=== PATIENT | female | born 1960 | race Caucasian/White ===

== ENCOUNTER 2021-08-01 23:02 | Observation (INO) ==
[2021-08-01 05:45] LABS: Basophils # 0.1 K/mcL (0.0-0.2); Basophils % 1.4 %; Eosinophils # 0.5 K/mcL (0.0-0.6); Eosinophils % 6.1 %; Hematocrit 33.3 % (35.3-44.9); Immature Granulocytes % 0.6 % (0-4); Lymphocytes % 25.7 %; Mean Corpuscular Hemoglobin 28.9 pg (28.0-33.3); Mean Corpuscular Volume 96.2 fL (83.0-100.0); Mean Platelet Volume 8.6 fL (9.4-12.4); Monocytes # 0.9 K/mcL (0.0-1.3); Monocytes % 11.8 %; Neutrophils # 4.3 K/mcL (1.6-8.9); Platelet Count 476 K/mcL (140-400); Red Blood Count 3.46 M/mcL (3.82-4.97); Red Cell Distribution Width 15.2 % (11.5-14.5); Segmented Neutrophils % 54.4 %; White Blood Count 7.9 K/mcL (4.3-11.1)
[2021-08-01 06:12] LABS: INR 1.5; Prothrombin Time 17.1 Seconds (9.4-12.1)
[2021-08-01 08:24] LABS: BUN/Creatinine Ratio 11 (6-26); Blood Urea Nitrogen 7 mg/dL (6-20); Carbon Dioxide 24 mEq/L (23-29); Chloride 104 mEq/L (98-107); Glucose 99 mg/dL (70-105); Osmolality,Calculated 280 (280-300); Potassium 3.4 mEq/L (3.5-5.1); Sodium 136 mEq/L (136-145); eGFR For African Americans > 60 (> 60); eGFR For Non-African Americans > 60 (> 60)
[2021-08-01] MEDS: Aspirin 81 MG TAB.CHEW PO SCH (08:30)
[2021-08-01] MEDS: *HR* OxyCODONE Immed Rel 5 MG TABLET PO PRN ×2 (17:08→23:38)
[2021-08-01] MEDS: Gabapentin 300 MG CAPSULE PO SCH ×2 (17:08→20:39)
[2021-08-01] MEDS: Apixaban 5 MG TABLET PO SCH (20:38)
[2021-08-01] MEDS: ALPRAZolam 0.5 MG TABLET PO PRN (20:39)
[2021-08-01] MEDS: Melatonin 3 MG TABLET PO PRN (20:39)
[~2021-08-01 23:02] MED LIST: Acetaminophen 325 MG TABLET PO PRN; Apixaban 5 MG TABLET PO SCH; Naloxone 0.4 MG/ML INJ IVP PRN; Ondansetron ODT 4 MG TAB.RAPDIS SL PRN
[2021-08-02] MEDS: *HR* OxyCODONE Immed Rel 5 MG TABLET PO PRN ×3 (05:46→19:33)
[2021-08-02 06:18] LABS: Hematocrit 34.1 % (35.3-44.9); Hemoglobin 10.2 g/dL (11.5-15.4); Mean Corpuscular HGB Conc 29.9 g/dL (31.6-35.5); Mean Corpuscular Hemoglobin 29.1 pg (28.0-33.3); Mean Corpuscular Volume 97.2 fL (83.0-100.0); Mean Platelet Volume 8.8 fL (9.4-12.4); Platelet Count 455 K/mcL (140-400); Red Blood Count 3.51 M/mcL (3.82-4.97); Red Cell Distribution Width 15.3 % (11.5-14.5)
[2021-08-02 08:18] LABS: Alanine Aminotransferase 20 Units/L (7-52); Albumin 3.3 g/dL (3.5-5.7); Albumin/Globulin Ratio 1.3 (1.1-2.2); Alkaline Phosphatase 130 Units/L (34-104); Aspartate Amino Transferase 24 Units/L (13-39); BUN/Creatinine Ratio 9 (6-26); Bilirubin,Total 0.4 mg/dL (0.3-1.0); Blood Urea Nitrogen 6 mg/dL (6-20); Calcium 9.1 mg/dL (8.6-10.3); Carbon Dioxide 25 mEq/L (23-29); Chloride 107 mEq/L (98-107); Globulin 2.6 g/dL (2.4-3.5); Glucose 91 mg/dL (70-105); Magnesium 1.9 mg/dL (1.6-2.6); Osmolality,Calculated 285 (280-300); Sodium 139 mEq/L (136-145); Total Protein 5.9 g/dL (6.4-8.9); eGFR For African Americans > 60 (> 60); eGFR For Non-African Americans > 60 (> 60)
[2021-08-02] MEDS ORDERED: NON-FORMULARY MEDICATION 1 EACH EACH (Mirabegron [Myrbetriq] 50 MG Tab.Er.24h) PO SCH (09:00)
[2021-08-02] MEDS: Multivit/Ca/Min/Fe/FA 1 TAB TABLET PO SCH (09:14)
[2021-08-02] MEDS: Gabapentin 300 MG CAPSULE PO SCH ×3 (09:14→19:33)
[2021-08-02] MEDS: Cyanocobalamin (B-12) 1,000 MCG TABLET PO SCH (09:14)
[2021-08-02] MEDS: Aspirin 81 MG TAB.CHEW PO SCH (09:14)
[2021-08-02] MEDS: Apixaban 5 MG TABLET PO SCH ×2 (09:14→19:33)
[2021-08-02] MEDS: BUDESONIDE 3 MG PO SCH (09:15)
[2021-08-02] MEDS: ALPRAZolam 0.5 MG TABLET PO PRN (19:32)
[2021-08-02] MEDS: Melatonin 3 MG TABLET PO PRN (19:33)
[2021-08-03] MEDS: *HR* OxyCODONE Immed Rel 5 MG TABLET PO PRN (08:45)
[2021-08-03] MEDS: Aspirin 81 MG TAB.CHEW PO SCH (08:45)
[2021-08-03] MEDS: Cyanocobalamin (B-12) 1,000 MCG TABLET PO SCH (08:46)
[2021-08-03] MEDS: Gabapentin 300 MG CAPSULE PO SCH (08:46)
[2021-08-03] MEDS: Multivit/Ca/Min/Fe/FA 1 TAB TABLET PO SCH (08:46)
[2021-08-03] MEDS: Apixaban 5 MG TABLET PO SCH (08:46)
[2021-08-03] MEDS: BUDESONIDE 3 MG PO SCH (09:11)
[2021-08-03 11:25] VITALS: BP 115/74; PULSE 92; RESP 16; TEMP 98.2; O2SAT 96
== END 2021-08-03 11:51 | disposition other institution (70) ==
LOC: INPGRE
PROVIDERS: ADMIT Family Medicine; ATTEND Family Medicine

== ENCOUNTER 2021-08-03 09:38 | Inpatient (IN) ==
[2021-08-03] MEDS ORDERED: Acetaminophen 325 MG TABLET PO PRN (11:14)
[2021-08-03] MEDS ORDERED: Naloxone 0.4 MG/ML INJ IVP PRN (11:19)
[2021-08-03] MEDS ORDERED: Ondansetron ODT 4 MG TAB.RAPDIS SL PRN (11:19)
[2021-08-03] MEDS: Gabapentin 300 MG CAPSULE PO SCH ×2 (15:45→21:25)
[2021-08-03] MEDS: *HR* OxyCODONE Immed Rel 5 MG TABLET PO PRN ×2 (15:48→21:23)
[2021-08-03] MEDS: ALPRAZolam 0.5 MG TABLET PO PRN (21:25)
[2021-08-03] MEDS: Apixaban 5 MG TABLET PO SCH (21:25)
[2021-08-04] MEDS: *HR* OxyCODONE Immed Rel 5 MG TABLET PO PRN ×3 (05:37→20:09)
[2021-08-04] MEDS: Aspirin 81 MG TAB.CHEW PO SCH (09:09)
[2021-08-04] MEDS: Cyanocobalamin (B-12) 1,000 MCG TABLET PO SCH (09:09)
[2021-08-04] MEDS: Apixaban 5 MG TABLET PO SCH ×2 (09:09→20:02)
[2021-08-04] MEDS: Gabapentin 300 MG CAPSULE PO SCH ×3 (09:10→20:03)
[2021-08-04] MEDS: Multivit/Ca/Min/Fe/FA 1 TAB TABLET PO SCH (09:10)
[2021-08-04] MEDS: ALPRAZolam 0.5 MG TABLET PO PRN (20:01)
[2021-08-04] MEDS: Melatonin 3 MG TABLET PO PRN (20:02)
[2021-08-05] MEDS: Gabapentin 300 MG CAPSULE PO SCH ×3 (09:08→20:12)
[2021-08-05] MEDS: Apixaban 5 MG TABLET PO SCH ×2 (09:09→20:12)
[2021-08-05] MEDS: Aspirin 81 MG TAB.CHEW PO SCH (09:09)
[2021-08-05] MEDS: Multivit/Ca/Min/Fe/FA 1 TAB TABLET PO SCH (09:09)
[2021-08-05] MEDS: Cyanocobalamin (B-12) 1,000 MCG TABLET PO SCH (09:10)
[2021-08-05] MEDS: *HR* OxyCODONE Immed Rel 5 MG TABLET PO PRN ×3 (09:21→22:46)
[2021-08-05] MEDS: ALPRAZolam 0.5 MG TABLET PO PRN (22:46)
[2021-08-05] MEDS: Melatonin 3 MG TABLET PO PRN (22:46)
[2021-08-06 05:41] LABS: Basophils # 0.1 K/mcL (0.0-0.2); Basophils % 1.3 %; Eosinophils # 0.5 K/mcL (0.0-0.6); Eosinophils % 8.6 %; Hematocrit 35.1 % (35.3-44.9); Hemoglobin 10.3 g/dL (11.5-15.4); Immature Granulocytes % 0.5 % (0-4); Lymphocytes # 2.2 K/mcL (0.6-4.6); Lymphocytes % 35.6 %; Mean Corpuscular HGB Conc 29.3 g/dL (31.6-35.5); Mean Corpuscular Hemoglobin 28.5 pg (28.0-33.3); Mean Corpuscular Volume 97.2 fL (83.0-100.0); Mean Platelet Volume 8.8 fL (9.4-12.4); Monocytes # 0.5 K/mcL (0.0-1.3); Monocytes % 8.8 %; Neutrophils # 2.8 K/mcL (1.6-8.9); Platelet Count 356 K/mcL (140-400); Red Blood Count 3.61 M/mcL (3.82-4.97); Red Cell Distribution Width 14.8 % (11.5-14.5); Segmented Neutrophils % 45.2 %; White Blood Count 6.1 K/mcL (4.3-11.1)
[2021-08-06 05:54] LABS: Reactive Lymphocytes Present (Not Present); Toxic Granulation Present (Not Present)
[2021-08-06 05:55] LABS: Platelet Estimate Normal (Normal)
[2021-08-06 05:56] LABS: BUN/Creatinine Ratio 17 (6-26); Blood Urea Nitrogen 10 mg/dL (6-20); Calcium 8.6 mg/dL (8.6-10.3); Carbon Dioxide 25 mEq/L (23-29); Chloride 107 mEq/L (98-107); Glucose 112 mg/dL (70-105); Large Platelets Present (Not Present); Osmolality,Calculated 288 (280-300); Potassium 3.7 mEq/L (3.5-5.1); Sodium 139 mEq/L (136-145); eGFR For African Americans > 60 (> 60); eGFR For Non-African Americans > 60 (> 60)
[2021-08-06] MEDS: Aspirin 81 MG TAB.CHEW PO SCH (10:05)
[2021-08-06] MEDS: Gabapentin 300 MG CAPSULE PO SCH ×3 (10:05→19:40)
[2021-08-06] MEDS: Apixaban 5 MG TABLET PO SCH ×2 (10:06→19:40)
[2021-08-06] MEDS: Cyanocobalamin (B-12) 1,000 MCG TABLET PO SCH (10:06)
[2021-08-06] MEDS: Multivit/Ca/Min/Fe/FA 1 TAB TABLET PO SCH (10:06)
[2021-08-06] MEDS: *HR* OxyCODONE Immed Rel 5 MG TABLET PO PRN ×2 (10:06→16:51)
[2021-08-06] MEDS: cephALEXin 500 MG CAPSULE PO SCH ×2 (16:52→19:40)
[2021-08-06] MEDS: Melatonin 3 MG TABLET PO PRN (19:39)
[2021-08-06] MEDS: ALPRAZolam 0.5 MG TABLET PO PRN (19:40)
[2021-08-07] MEDS: *HR* OxyCODONE Immed Rel 5 MG TABLET PO PRN ×3 (01:04→17:12)
[2021-08-07] MEDS: cephALEXin 500 MG CAPSULE PO SCH ×3 (09:58→20:17)
[2021-08-07] MEDS: Aspirin 81 MG TAB.CHEW PO SCH (09:58)
[2021-08-07] MEDS: Gabapentin 300 MG CAPSULE PO SCH ×3 (09:58→20:17)
[2021-08-07] MEDS: Apixaban 5 MG TABLET PO SCH ×2 (09:59→20:17)
[2021-08-07] MEDS: Cyanocobalamin (B-12) 1,000 MCG TABLET PO SCH (09:59)
[2021-08-07] MEDS: Multivit/Ca/Min/Fe/FA 1 TAB TABLET PO SCH (09:59)
[2021-08-07] MEDS: ALPRAZolam 0.5 MG TABLET PO PRN (20:17)
[2021-08-07] MEDS: Melatonin 3 MG TABLET PO PRN (20:17)
[2021-08-08] MEDS: *HR* OxyCODONE Immed Rel 5 MG TABLET PO PRN ×3 (05:36→18:15)
[2021-08-08] MEDS: Aspirin 81 MG TAB.CHEW PO SCH (08:59)
[2021-08-08] MEDS: Gabapentin 300 MG CAPSULE PO SCH ×3 (08:59→20:06)
[2021-08-08] MEDS: Multivit/Ca/Min/Fe/FA 1 TAB TABLET PO SCH (09:00)
[2021-08-08] MEDS: cephALEXin 500 MG CAPSULE PO SCH ×3 (09:00→20:06)
[2021-08-08] MEDS: Apixaban 5 MG TABLET PO SCH ×2 (09:00→20:06)
[2021-08-08] MEDS: Cyanocobalamin (B-12) 1,000 MCG TABLET PO SCH (09:00)
[2021-08-08] MEDS: Melatonin 3 MG TABLET PO PRN (20:06)
[2021-08-08] MEDS: ALPRAZolam 0.5 MG TABLET PO PRN (20:06)
[2021-08-09] MEDS: *HR* OxyCODONE Immed Rel 5 MG TABLET PO PRN ×3 (04:39→20:34)
[2021-08-09] MEDS: Gabapentin 300 MG CAPSULE PO SCH ×3 (09:29→20:33)
[2021-08-09] MEDS: Cyanocobalamin (B-12) 1,000 MCG TABLET PO SCH (09:30)
[2021-08-09] MEDS: Aspirin 81 MG TAB.CHEW PO SCH (09:30)
[2021-08-09] MEDS: Apixaban 5 MG TABLET PO SCH ×2 (09:30→20:34)
[2021-08-09] MEDS: Multivit/Ca/Min/Fe/FA 1 TAB TABLET PO SCH (09:30)
[2021-08-09] MEDS: cephALEXin 500 MG CAPSULE PO SCH ×3 (09:30→20:34)
[2021-08-09] MEDS: ALPRAZolam 0.5 MG TABLET PO PRN (20:34)
[2021-08-09] MEDS: Melatonin 3 MG TABLET PO PRN (20:34)
[2021-08-10] MEDS: Apixaban 5 MG TABLET PO SCH ×2 (08:30→20:45)
[2021-08-10] MEDS: Gabapentin 300 MG CAPSULE PO SCH ×3 (08:30→20:43)
[2021-08-10] MEDS: cephALEXin 500 MG CAPSULE PO SCH ×3 (08:30→20:45)
[2021-08-10] MEDS: Multivit/Ca/Min/Fe/FA 1 TAB TABLET PO SCH (08:30)
[2021-08-10] MEDS: Aspirin 81 MG TAB.CHEW PO SCH (08:30)
[2021-08-10] MEDS: *HR* OxyCODONE Immed Rel 5 MG TABLET PO PRN ×3 (08:30→20:46)
[2021-08-10] MEDS: Cyanocobalamin (B-12) 1,000 MCG TABLET PO SCH (08:30)
[2021-08-10] MEDS: ALPRAZolam 0.5 MG TABLET PO PRN (20:41)
[2021-08-10] MEDS: Melatonin 3 MG TABLET PO PRN (20:43)
[2021-08-10] MEDS ORDERED: methocarbamoL 750 MG TABLET PO PRN (21:02)
[2021-08-11] MEDS: Multivit/Ca/Min/Fe/FA 1 TAB TABLET PO SCH (08:51)
[2021-08-11] MEDS: Apixaban 5 MG TABLET PO SCH ×2 (08:51→20:51)
[2021-08-11] MEDS: Gabapentin 300 MG CAPSULE PO SCH ×3 (08:51→20:51)
[2021-08-11] MEDS: Cyanocobalamin (B-12) 1,000 MCG TABLET PO SCH (08:51)
[2021-08-11] MEDS: Aspirin 81 MG TAB.CHEW PO SCH (08:51)
[2021-08-11] MEDS: cephALEXin 500 MG CAPSULE PO SCH ×2 (08:51→16:25)
[2021-08-11] MEDS: *HR* OxyCODONE Immed Rel 5 MG TABLET PO PRN ×3 (08:52→23:25)
[2021-08-12] MEDS: *HR* OxyCODONE Immed Rel 5 MG TABLET PO PRN ×4 (07:53→23:02)
[2021-08-12] MEDS: Aspirin 81 MG TAB.CHEW PO SCH (07:53)
[2021-08-12] MEDS: Cyanocobalamin (B-12) 1,000 MCG TABLET PO SCH (07:54)
[2021-08-12] MEDS: Gabapentin 300 MG CAPSULE PO SCH ×3 (07:54→20:19)
[2021-08-12] MEDS: Multivit/Ca/Min/Fe/FA 1 TAB TABLET PO SCH (07:54)
[2021-08-12] MEDS: Apixaban 5 MG TABLET PO SCH ×2 (07:54→20:20)
[2021-08-12] MEDS ORDERED: Sennosides 8.6 MG TABLET PO PRN (10:26)
[2021-08-12] MEDS ORDERED: polyethylene glycoL 3350 17 GM POWD.PACK PO PRN (10:27)
[2021-08-13] MEDS: *HR* OxyCODONE Immed Rel 5 MG TABLET PO PRN ×4 (06:19→20:27)
[2021-08-13] MEDS: Cyanocobalamin (B-12) 1,000 MCG TABLET PO SCH (08:12)
[2021-08-13] MEDS: Gabapentin 300 MG CAPSULE PO SCH ×3 (08:12→20:26)
[2021-08-13] MEDS: Multivit/Ca/Min/Fe/FA 1 TAB TABLET PO SCH (08:12)
[2021-08-13] MEDS: Apixaban 5 MG TABLET PO SCH ×2 (08:12→20:27)
[2021-08-13] MEDS: Aspirin 81 MG TAB.CHEW PO SCH (08:12)
[2021-08-13] MEDS: ALPRAZolam 0.5 MG TABLET PO PRN (20:26)
[2021-08-14] MEDS: Apixaban 5 MG TABLET PO SCH ×2 (08:25→20:15)
[2021-08-14] MEDS: Gabapentin 300 MG CAPSULE PO SCH ×3 (08:25→20:15)
[2021-08-14] MEDS: Multivit/Ca/Min/Fe/FA 1 TAB TABLET PO SCH (08:25)
[2021-08-14] MEDS: Cyanocobalamin (B-12) 1,000 MCG TABLET PO SCH (08:25)
[2021-08-14] MEDS: *HR* OxyCODONE Immed Rel 5 MG TABLET PO PRN ×2 (08:25→15:43)
[2021-08-14] MEDS: Aspirin 81 MG TAB.CHEW PO SCH (08:25)
[2021-08-14] MEDS: ALPRAZolam 0.5 MG TABLET PO PRN (20:18)
[2021-08-15] MEDS: *HR* OxyCODONE Immed Rel 5 MG TABLET PO PRN ×3 (02:16→20:05)
[2021-08-15 06:38] LABS: Hematocrit 34.8 % (35.3-44.9); Hemoglobin 10.6 g/dL (11.5-15.4); Mean Corpuscular HGB Conc 30.5 g/dL (31.6-35.5); Mean Corpuscular Hemoglobin 28.3 pg (28.0-33.3); Mean Platelet Volume 9.3 fL (9.4-12.4); Platelet Count 369 K/mcL (140-400); Red Blood Count 3.74 M/mcL (3.82-4.97); Red Cell Distribution Width 14.5 % (11.5-14.5); White Blood Count 8.2 K/mcL (4.3-11.1)
[2021-08-15 08:22] LABS: Alanine Aminotransferase 19 Units/L (7-52); Albumin 3.1 g/dL (3.5-5.7); Albumin/Globulin Ratio 1.3 (1.1-2.2); Alkaline Phosphatase 83 Units/L (34-104); Aspartate Amino Transferase 24 Units/L (13-39); BUN/Creatinine Ratio 16 (6-26); Bilirubin,Total 0.4 mg/dL (0.3-1.0); Blood Urea Nitrogen 9 mg/dL (6-20); Calcium 8.9 mg/dL (8.6-10.3); Carbon Dioxide 25 mEq/L (23-29); Chloride 106 mEq/L (98-107); Globulin 2.4 g/dL (2.4-3.5); Glucose 89 mg/dL (70-105); Magnesium 1.5 mg/dL (1.6-2.6); Osmolality,Calculated 290 (280-300); Potassium 3.5 mEq/L (3.5-5.1); Sodium 141 mEq/L (136-145); Total Protein 5.5 g/dL (6.4-8.9); eGFR For African Americans > 60 (> 60); eGFR For Non-African Americans > 60 (> 60)
[2021-08-15] MEDS: Aspirin 81 MG TAB.CHEW PO SCH (08:26)
[2021-08-15] MEDS: Multivit/Ca/Min/Fe/FA 1 TAB TABLET PO SCH (08:26)
[2021-08-15] MEDS: Apixaban 5 MG TABLET PO SCH ×2 (08:26→20:07)
[2021-08-15] MEDS: Gabapentin 300 MG CAPSULE PO SCH ×3 (08:27→20:07)
[2021-08-15] MEDS: Cyanocobalamin (B-12) 1,000 MCG TABLET PO SCH (08:27)
[2021-08-15 15:08] LABS: Bilirubin,Urine Negative (Negative); Blood,Urine Small (Negative); Clarity,Urine Clear (Clear); Color,Urine Yellow (Yellow); Glucose,Urine (UA) Normal (Normal); Ketones,Urine Negative (Negative); Leukocyte Esterase,Urine Negative (Negative); Nitrite,Urine Negative (Negative); Protein,Urine Negative (Neg-Trace); Urobilinogen,Urine Normal (Normal)
[2021-08-15] MEDS: ALPRAZolam 0.5 MG TABLET PO PRN (18:51)
[2021-08-16] MEDS: *HR* OxyCODONE Immed Rel 5 MG TABLET PO PRN ×2 (02:33→08:46)
[2021-08-16 07:02] VITALS: BP 138/78; PULSE 94; RESP 15; TEMP 97.8; O2SAT 94
[2021-08-16] MEDS: Multivit/Ca/Min/Fe/FA 1 TAB TABLET PO SCH (08:45)
[2021-08-16] MEDS: Aspirin 81 MG TAB.CHEW PO SCH (08:46)
[2021-08-16] MEDS: Gabapentin 300 MG CAPSULE PO SCH (08:46)
[2021-08-16] MEDS: Cyanocobalamin (B-12) 1,000 MCG TABLET PO SCH (08:46)
[2021-08-16] MEDS: Apixaban 5 MG TABLET PO SCH (08:46)
== END 2021-08-16 12:15 | disposition home health service (06) | DRG 559 ==
LOC: INPGRE 11:57
PROVIDERS: ADMIT Family Medicine; ATTEND Family Medicine